=== PATIENT | male | born 1970 | race Hispanic/Latino ===

== ENCOUNTER 2023-03-03 18:21 | Emergency (ER) | payer OTHER ==
[~2023-03-03] VITALS: Ht 182.9 cm; Wt 113.4 kg
[~2023-03-03 18:21] MED LIST: AMOX1TAB15 PO; ASPI-1443 PO; ATOR40TA71 PO; EMPA1TAB7 PO; GABA300C PO; IBUP-2077 PO; INSU100V37 SQ; ISOS30TA92 PO; NITR0.4T50 SL; SEMA0.258 SQ
[2023-03-03 18:56] LABS: BASOPHILS # (AUTO) 0.01 K/uL (0.00-0.20); BASOPHILS % (AUTO) 0.2 % (0.0-5.0); EOSINOPHILS % (AUTO) 1.7 % (0.0-8.0); HEMATOCRIT 23.3 % (42-54); IMMATURE GRANULOCYTE ABSOLUTE 0.03 K/uL (0-1); LYMPHOCYTES # (AUTO) 1.7 K/uL (1.0-4.8); LYMPHOCYTES % (AUTO) 29.4 % (21.0-51.0); MEAN CORPUSCULAR HGB CONC 32.6 g/dL (32.0-36.0); MONOCYTES # (AUTO) 0.5 K/uL (0.1-1.0); MONOCYTES % (AUTO) 8.8 % (3.0-13.0); NEUTROPHILS # (AUTO) 3.5 K/uL (1.8-7.7); NEUTROPHILS % (AUTO) 59.4 % (40.0-77.0); PLATELET COUNT (AUTO) 320 K/uL (130-400); RED BLOOD CELL COUNT(AUTO) 2.71 MIL/uL (4.50-6.20); RED CELL DISTRIBUTION WIDTH 13.8 % (11.0-15.5); WHITE BLOOD COUNT (AUTO) 5.8 K/uL (4.8-10.8)
[2023-03-03 19:11] LABS: POTASSIUM 4.2 mmol/L (3.5-5.1)
[2023-03-03 19:15] LABS: ALBUMIN 2.4 g/dL (3.5-5.0); BILIRUBIN,TOTAL 0.7 mg/dL (0.2-1.0); INR 0.93 (0.85-1.15); MAGNESIUM 1.9 mg/dL (1.80-2.40); PROTHROMBIN TIME 9.8 SEC (9.6-11.6); TOTAL PROTEIN, SERUM 6.1 g/dL (6.0-8.3)
[2023-03-03 19:16] LABS: PARTIAL THROMBOPLASTIN TIME 25.5 SEC (26.3-35.5)
[2023-03-03] MEDS ORDERED: IOHEXOL-350 75 ML VIAL IV ONE (20:23)
[2023-03-03 23:30] VITALS: BP 118/60; PULSE 80; RESP 18; O2SAT 98
== END 2023-03-03 23:30 ==
LOC: EDH 18:21
DX: R55 Syncope and collapse (principal); D64.9 Anemia, unspecified; I25.10 Atherosclerotic heart disease of native coronary artery without angina pectoris; E11.9 Type 2 diabetes mellitus without complications; E78.00 Pure hypercholesterolemia, unspecified; I10 Essential (primary) hypertension; Z79.4 Long term (current) use of insulin; Z79.82 Long term (current) use of aspirin; Z79.84 Long term (current) use of oral hypoglycemic drugs; Z79.899 Other long term (current) drug therapy; Z95.1 Presence of aortocoronary bypass graft
CPT/HCPCS: 99285; 70450; 71045; 83735; 84484; 80053; 85025; 85610; 85730; 36415; 71270; 93005; Q9967